=== PATIENT | female | born 1950 | race Two or more races ===

== ENCOUNTER 2024-12-09 15:09 | Emergency (ER) | payer OTHER ==
[~2024-12-09] VITALS: Ht 162.6 cm; Wt 85.3 kg
[2024-12-09] MEDS ORDERED: CHILDREN'S ASPI81 MG (15:26)
[2024-12-09] MEDS ORDERED: LASIX20 MG (15:26)
[2024-12-09] MEDS ORDERED: METFORMIN HCL500 M3 (15:26)
[2024-12-09] MEDS ORDERED: ARICEPT5 MG (15:26)
[2024-12-09] MEDS ORDERED: ELIQUIS2.5 MG (15:26)
[2024-12-09] MEDS ORDERED: ATORVASTATIN CA10 MG (15:26)
[2024-12-09] MEDS ORDERED: LEVOTHYROXINE25 MCG (15:27)
[2024-12-09 17:19] LABS: BASO % 0.4 % (0.1-1.2); EOS # 0.09 (0.04-0.54); EOS % 1.2 % (0.7-7.0); HEMATOCRIT 36.6 % (34.1-44.9); HEMOGLOBIN 12.5 g/dL (11.2-15.7); LYMPH # 2.51 (1.18-3.74); LYMPH % 34.1 % (19.3-53.1); MONO # 0.54 (0.24-0.82); MONO % 7.3 % (4.7-12.5); NEUT # 4.18 (1.56-6.13); NEUT % 56.7 % (34.0-71.1); PLATELET COUNT 205 K/uL (163-369); RED BLOOD COUNT 3.79 M/uL (3.93-5.22); RED CELL DISTRIBUTION WIDTH 12.9 % (11.6-14.4)
[2024-12-09 17:31] LABS: CALCIUM 8.8 mg/dL (8.5-10.1); CREATININE SERUM 0.67 mg/dL (0.55-1.02); GFR 86.04; POTASSIUM 3.97 mEq/L (3.5-5.1)
[2024-12-09 17:34] LABS: PH,URINE 8.5 (5.0-8.0); URINE APPEARANCE Cloudy; URINE BILIRRUBIN Negative (NEGATIVE); URINE COLOR Yellow; URINE GLUCOSE Negative (NEGATIVE); URINE KETONE Negative (NEGATIVE); URINE LEUKOCYTE Small; URINE NITRATE Negative; URINE PROTEIN Trace (NEGATIVE)
[2024-12-09 17:42] LABS: URINE BACTERIA 106.4 uL (0.0-1933); URINE EPITHELIAL CELLS 18.3 uL (0.0-38.8); URINE RBC 88.8 uL (0.0-20.8); URINE WBC 33.8 uL (0.0-23.2)
[2024-12-09 17:51] LABS: COVID-19 AG NEGATIVE (NEGATIVE); INFLUENZA A AG NEGATIVE (NEGATIVE)
[2024-12-09 17:53] LABS: URINE BLOOD TRACES
[2024-12-09] MEDS ORDERED: ORPHENADRINE CITRATE 30 MG/ML AMPUL IM STA (17:59)
[2024-12-09] MEDS ORDERED: KETOROLAC TROMETHAMINE 30 MG VIAL IM STA (17:59)
[2024-12-09] MEDS ORDERED: ORPHENADRINE CITRATE 30 MG/ML AMPUL ONE (18:02)
[2024-12-09] MEDS ORDERED: KETOROLAC TROMETHAMINE 30 MG VIAL ONE (18:02)
== END 2024-12-09 18:14 | disposition home or self-care (01) ==
LOC: ER 15:34
PROVIDERS: General Practice
DX: N39.0 Urinary tract infection, site not specified (principal); M54.2 Cervicalgia; Z20.822 Contact with and (suspected) exposure to COVID-19; E11.9 Type 2 diabetes mellitus without complications; Z79.84 Long term (current) use of oral hypoglycemic drugs
CPT/HCPCS: 36415; 96372; 99283; J1885; J2360